=== PATIENT | female | born 1945 | race Caucasian/White ===

== ENCOUNTER → 2023-12-25 09:20 | Outpatient (CLI) | payer MEDICARE, OTHER, SELFPAY ==
--- NOTE | 2023-12-25 09:23 | DI.RAD.S_ITS ---
PROCEDURE: XR LUMBAR SPINE MIN 4V INDICATIONS: BILATERAL FOOT PAIN TECHNIQUE: 5 views of the lumbar spine were acquired, including bilateral oblique views. COMPARISON: None. FINDINGS: Bones: 5 nonrib-bearing vertebrae are present. There is very mild rightward curvature of lumbar spine centered at L3 level. There is also 5 mm anterolisthesis of L4 on L5. Age indeterminate superior endplate anterior wedge compression deformity at L2 level is seen with up to 30% loss of L2 vertebral body height anteriorly. No other vertebral body compression fractures. No suspicious bony lesions. Soft tissues: Overlying bowel gas pattern is normal. No suspicious soft tissue calcifications. Oblique images: No pars defects. IMPRESSION: 1. Age indeterminate, likely old anterior wedge compression deformity at L2 level with up to 30% loss of L2 vertebral body height anteriorly. No other compression fracture is seen. 2. 5 mm anterolisthesis of L4 on L5. Very mild rightward curvature of lumbar spine centered at L3 level. Degenerative disc disease throughout lumbar spine. Dictated by: Ezekiel Macdonald M.D. on 12/25/2023 at 11:04 Approved by: Ezekiel Macdonald M.D. on 12/25/2023 at 11:05
== END ==
PROVIDERS: Family Provider Obstetrics & Gynecology; PCP Registered Nurse; Referring Provider Physical Medicine & Rehabilitation; Visit Provider Physical Medicine & Rehabilitation
DX: M51.361 Other intervertebral disc degeneration, lumbar region with lower extremity pain only (principal); M43.16 Spondylolisthesis, lumbar region; M48.061 Spinal stenosis, lumbar region without neurogenic claudication; S32.029S Unspecified fracture of second lumbar vertebra, sequela; M16.11 Unilateral primary osteoarthritis, right hip; M17.12 Unilateral primary osteoarthritis, left knee; R20.0 Anesthesia of skin; R20.2 Paresthesia of skin
CPT/HCPCS: 72110; 99214